=== PATIENT | male | born 1955 | race Caucasian/White ===

== ENCOUNTER → 2024-08-29 07:32 | Outpatient (REF) | payer MEDICARE, BC, SELFPAY | LOC: MRI 3T 07:32 | PROVIDERS: ATTENDING PHYSICIAN Orthopaedic Surgery; FAMILY PHYSICIAN Student in an Organized Health Care Education/Training Program | DX: M47.816 Spondylosis without myelopathy or radiculopathy, lumbar region (principal); M54.50 Low back pain, unspecified | CPT/HCPCS: 72148 ==

== ENCOUNTER 2025-02-21 21:18 | Emergency (ER) | payer MEDICARE, BC, SELFPAY ==
[2025-02-21 21:19] VITALS: BP 181/10
[2025-02-21 21:22] VITALS: BP 203/100
[2025-02-21 22:31] VITALS: BP 186/96
[2025-02-21 23:22] VITALS: BP 159/78
[2025-02-22] MEDS: XANAX 0.5 MG PO (00:05)
[2025-02-22 00:33] LABS: % Basophils 0.6 % (0-2); % Eosinophils 0.4 % (0-6); % Immature Granulocytes 1.6 % (0-0.5); % Lymphocytes 16.9 % (20.5-51.1); % Monocytes 11.6 % (1.7-9.3); % Neutrophils 68.9 % (42.2-75.2); Absolute Immature Granulocytes 0.1 10^3/uL (0-0.05); Absolute Lymphocytes 1.2 10^3/uL (1.2-3.4); Absolute Monocytes 0.8 10^3/uL (0.1-0.6); Absolute Neutrophils 4.7 10^3/uL (1.4-6.5); Hematocrit 41.7 % (39.0-52.0); Hemoglobin 14.1 g/dL (13.0-18.0); Mean Corp Hgb Conc. 33.8 g/dL (33.0-37.0); Mean Corpuscular Hgb 31.5 pg (27.0-31.0); Mean Corpuscular Volume 93.1 fL (80.0-94.0); Mean Platelet Volume 10.9 fL (7.4-10.4); Nucleated Red Blood Cells % 0 % (-); Platelet Count 278 10^3/uL (130-400); Red Blood Cell Count 4.48 10^6/uL (4.70-6.10); Red Cell Dist. Width 13.1 % (11.5-14.5); White Blood Cell Count 6.8 10^3/uL (4.8-10.8)
[2025-02-22 00:48] LABS: Troponin I < 0.012 ng/ml
[2025-02-22 01:08] LABS: ALT (SGPT) 19 U/L (0-50); AST (SGOT) 28 U/L (17-59); Albumin 4.5 g/dl (3.5-5.0); Alkaline Phosphatase 72 U/L (38-126); Blood Urea Nitrogen 11 mg/dl (9-20); Calcium 9.3 mg/dl (8.4-10.2); Carbon Dioxide 23 mmol/L (22-30); Chloride 109 mmol/L (98-107); Glucose 108 mg/dl (70-99); Potassium 4.3 mmol/L (3.5-5.1); Sodium 142 mmol/L (135-145); Total Protein 6.8 g/dl (6.3-8.2); eGFR > 60.00
[2025-02-22 01:16] LABS: TSH Reflex To Free T4 4.14 uIU/ml (0.47-4.68)
--- NOTE | 2025-02-22 01:34 | ED.GENMED ---
History of Present Illness
General
Chief Complaint: Blood Pressure Problem
Source: patient
Exam Limitations: none
Time Seen by Provider: 02/21/25 23:03
Nursing documentation reviewed up to this point in time: agreed with
History of Present Illness
History of Present Illness:
69 y/o M
h/o anxiety, htn
here with elevated bp readings today
says he didn't 'feel right' yesteday but couldn't put his finger on why. he had no pain, cp, sob, headache, weakness, fever, but felt alittle fatigued
able to do normal thing syetesrday
wokeup today and decided to take his bp which was 160/80 and throughout the day it zuri
took normal losartan 50 mg at 7 am and when pressur was rising to 180/90 he took another dose of 50 mg at 10 am
he continued to take his bp throughotu the day and it got to 200/100 and then h e knew he would be very anxious
had mild headache
tok tylenol hwich resolved
no severe headache, vision changes, cp, sob, vomiting, confusion, weakness
he does have a lotof anxiety
sometimes uses xanax but not regularly
a fw stressors recently
Past History
Past History
ED Past Medical History: GERD, HTN and Psychiatric (anxiety )
ED Past Surgical History: Orthopedic (L hip replacement 12/05/22)
Social History
Tobacco: Non-smoker
Alcohol: Occasional
Drug: None
Personal:
Living: with family
Family History
Family History: Hypertension
Review of Systems
Review of Systems
Allergies reviewed?: Yes
All Other Systems: Not applicable
Phy Exam
Physical Exam
Physical Exam:
GENERAL: Alert , in no apparent distress
HEAD: NCAT
EYE: pupils equal and reactive, no nystagmus, no photophobia
NECK: Supple,full rom, nontender
ENT: o/p clr, mmm.
CARDIAC: Regular rate and rhythm . no edema
LUNGS: Clear breath sounds bilaterally, no acute respiratory distress, no wheezes/rales/rhonchi
ABDOMEN: Soft, without focal tenderness, no r/g, no cvat
NEUROLOGICAL: Alert and orientedx 4, cn intact, no facial asymmetry, 5/5 strength in UE/LE, sensation intact, romberg neg, ambulates without assistance, neg pronator drift
SKIN: Warm and dry, skin intact.
MUSCULOSKELETAL: No edema, well perfused.
PSYCH: Normal and appropriate interaction.
Course
Orders/Labs/Results
Orders:
Orders
02/21/25 23:56
Complete Blood Count/With Diff Urgent
Comprehensive Metabolic Panel Urgent
TSH Reflex To Free T4 Urgent
Troponin I Urgent
Alprazolam [Xanax] 0.5 mg PO NOW STA
02/21/25 23:57
Electrocardiogram (*1) Urgent
Reason for Study: Hypertension, Benign
EKG- Treatment ONCE
Abnormal Lab Results
02/22/25
00:05
RBC 4.48 L 10^6/uL
(4.70-6.10)
MCH 31.5 H pg
(27.0-31.0)
MPV 10.9 H fL
(7.4-10.4)
Abs Immat Gran (auto) 0.1 H 10^3/uL
(0-0.05)
Absolute Monos (auto) 0.8 H 10^3/uL
(0.1-0.6)
Immature Gran % 1.6 H %
(0-0.5)
Lymphocytes % 16.9 L %
(20.5-51.1)
Monocytes % 11.6 H %
(1.7-9.3)
Chloride 109 H mmol/L
(98-107)
Glucose 108 H mg/dl
(70-99)
02/22/25 00:05
02/22/25 00:05
Vital Signs
Initial and Last Documented VS:
Initial Vital Signs
Pulse Resp BP Pulse Ox
76 16 181/10 98
02/21/25 21:19 02/21/25 21:19 02/21/25 21:19 02/21/25 21:19
Last Documented Vital Signs
Temp Pulse Resp BP Pulse Ox
36.8 C 72 20 143/81 99
02/22/25 01:35 02/21/25 23:22 02/21/25 23:22 02/22/25 01:35 02/21/25 23:22
MDM/Problems Addressed
Differential Diagnosis Includes:
asymtpaomtic htn, stress/anxiety
MDM/Problems Addressed:
69 y/o M
htn
here with not feeling 'right' since yesterday
cannot really pinpoint it
no severe headache, ams, confusion, cp, sob, weakness, etc
bp was mildly elevated but then pt was very anxiou sand checked it mahy times throughtout the day
took extra dose of losartan
here w/u is unremarkable
d/w ed attending who agreed d/c home, bp down to 140s/80s in departmtn
he was treated with xanax while hre and he feels much better
*Critical Care Note
Total Time (30-74mins, 75-104mins- exclusive of procedures): Not Applicable
ED Attending Note
-
Portions of this chart may have been created with voice recognition software.� Occasional wrong word or��sound alike� substitutions may have occurred due to the inherent limitations of voice recognition software.
Discharge Plan
Departure
Patient Disposition: Home (Routine Discharge)
Date of Disposition: 02/22/25
Time of Disposition: 01:40
Patient with high blood pressure during this ER visit?: Yes
Condition: Fair
Covid-19: Not Applicable
Discharge Problem:
Hypertension
Instructions: High Blood Pressure (DC)
Prescriptions:
No Action
losartan 50 mg tablet
50 mg PO DAILY
Lumigan 0.01 % drops
1 drp BOTH EYES HS
acetaminophen [Tylenol] 325 mg Tablet
650 mg PO Q6H PRN (Reason: mild hip pain)
alprazolam 0.5 mg tablet
0.5 mg PO DAILYPRN PRN (Reason: anxiety)
Patient Comments:
01/03/23: Per PDMP, last filled 03/22/22 #10 for 30 days
pantoprazole 40 mg tablet,delayed release (DR/EC)
40 mg PO BID 90 Days Qty: 180 0RF
sucralfate [Carafate] 100 mg/mL suspension
10 ml PO BID 14 Days Qty: 280 0RF
Referrals:
Jonel Oquendo, DO [Family Provider] -
Activity Restrictions/Additional Instructions:
WE ARE NOT SURE THE CAUSE OF YOUR ELEVATED BLOOD PRESSURE, BUT IT DID COME DOWN WHILE HERE
YOU CAN WRITE DOWN YOUR PRESSURES ONCE OR TWICE A DAY TO KEEP A LOG FOR YOUR DOCTOR BUT DO NOT REPEAT TAKING IT OVER AND OVER IT USUALLY CAUSES ANXIETY
IF YOUR BLOOD PRESSURE IS CONSISTENTLY OVER 160/90, YOU CAN CONSIDER TAKING 100 MG OF LOSARTAN DAILY RATHER THAN THE 50 MG
BUT PLEASE FOLLOW UP WITH YOUR DOCTOR
WATCH YOUR SALT INTAKE
RETURN FOR ANY CONCERNS LIKE SEVERE SUDDEN HEADACHE, VOMITING, CHEST PAIN, SHORTNESS OF BREATH, VISION CHANGES, ETC
Interventions
Interventions:
*Risk Screen - Suicide Last Done: 02/21/25 21:19
*General Assessment Last Done: 02/21/25 23:50
*Neglect/Abuse Screening Last Done: 02/21/25 21:19
*ED- Fall Risk Assessment Last Done: 02/22/25 01:53
*ED COVID-19 Vaccine History Last Done: 02/22/25 01:53
*Nursing Disposition Last Done: 02/22/25 01:53
ED- Cardiac Assessment Last Done: 02/21/25 21:35
ED- Neurological Assessment Last Done: 02/21/25 21:35
ED- Pulmonary Assessment Last Done: 02/21/25 21:35
Discharge Date and Time
Discharge Date/Time: 02/22/25 01:56
Print Language: [place]ET[place]
[2025-02-22 01:35] VITALS: BP 143/81
== END 2025-02-22 01:56 | disposition home or self-care (01) ==
LOC: EMR 21:18
PROVIDERS: Physician Assistant; EMERGENCY PHYSICIAN Emergency Medicine; FAMILY PHYSICIAN Student in an Organized Health Care Education/Training Program
DX: I10 Essential (primary) hypertension (principal); R53.83 Other fatigue; R51.9 Headache, unspecified; F41.9 Anxiety disorder, unspecified; K21.9 Gastro-esophageal reflux disease without esophagitis; M19.90 Unspecified osteoarthritis, unspecified site; H40.9 Unspecified glaucoma; Z96.642 Presence of left artificial hip joint; Z86.16 Personal history of COVID-19
CPT/HCPCS: 99284; 80053; 84443; 84484; 85025; 93005

== ENCOUNTER → 2025-03-04 16:03 | Outpatient (REF) | payer MEDICARE, BC, SELFPAY | LOC: HWRCS 16:03 | PROVIDERS: ATTENDING PHYSICIAN Internal Medicine Interventional Cardiology; FAMILY PHYSICIAN Student in an Organized Health Care Education/Training Program | DX: R00.2 Palpitations (principal) | CPT/HCPCS: 93306 ==

== ENCOUNTER 2025-04-02 06:21 | Day surgery (SDC) | payer MEDICARE, BC, SELFPAY | END 2025-04-02 10:09 | disposition home or self-care (01) | LOC: GI 06:21 | PROVIDERS: ATTENDING PHYSICIAN Internal Medicine Gastroenterology | DX: Z12.11 Encounter for screening for malignant neoplasm of colon (principal); K64.8 Other hemorrhoids; K57.30 Diverticulosis of large intestine without perforation or abscess without bleeding; D12.3 Benign neoplasm of transverse colon; D12.4 Benign neoplasm of descending colon; Z86.0100 Personal history of colon polyps, unspecified | CPT/HCPCS: 45380; 88305 ==

== ENCOUNTER → 2025-06-01 13:32 | Outpatient (REF) | payer MEDICARE, BC, SELFPAY ==
[2025-06-01 15:40] LABS: Hematocrit 33.6 % (39.0-52.0); Hemoglobin 11.0 g/dL (13.0-18.0); Mean Corp Hgb Conc. 32.7 g/dL (33.0-37.0); Mean Corpuscular Volume 91.6 fL (80.0-94.0); Nucleated Red Blood Cells % 0 % (-); Platelet Count 231 10^3/uL (130-400); Red Cell Dist. Width 14.4 % (11.5-14.5)
== END ==
LOC: HWLAB 13:32
PROVIDERS: ATTENDING PHYSICIAN Family Medicine
DX: D69.6 Thrombocytopenia, unspecified (principal); B60.00 Babesiosis, unspecified
CPT/HCPCS: 36415; 85025